=== PATIENT | male | born 1945 | race Caucasian/White ===

== ENCOUNTER → 2020-01-25 13:36 | Outpatient (CLI) | payer MEDICARE, OTHER, SELFPAY ==
--- NOTE | 2020-01-25 | DI.ECHO.S_ITS ---
[facility] +---------+ : : [address] : [place] : : : : [id number] : : : : Phone: [phone]---------+ Echocardiogram Report + + :Name: AVELINO SCHMITT Study Date: 01/25/2020 Height: 70 in : :[facility] Weight: 195 lb : : Gender: Male BSA: 2.1 m2 : :: 1945 Age: 74 yrs BP: 150/74 mmHg: :Reason For Study: ATRIAL FIBRILLATION : :Ordering Physician: JUANIS, : :MARCELO Performed By: Belkis Torres : :Referring: MARCELO BENNETT : + + Interpretation Summary 1) Normal left ventricular size, wall motion, and systolic function (EF 60- 65%). 2) The right ventricle is mildly dilated. Right ventricular systolic function is mildly reduced. 3) Moderate biatrial enlargement. 4) There is mild to moderate tricuspid regurgitation. 5) The right ventricular systolic pressure is estimated to be at least 58 mmHg based on an estimated right atrial pressure of 8 mm Hg. 6) Hypertension present during the study (BP 150/74mmHg). 7) No prior Echo available for comparison. Procedure: A two-dimensional transthoracic echocardiogram with color flow and Doppler was performed. The study quality was technically adequate. There is no prior echocardiogram noted for this patient. The patient was in atrial fibrillation with heart rates between 45-56 bpm during the exam. Left Ventricle: Proximal septal thickening is noted. The left ventricle is normal in size. The ejection fraction is estimated to be 60-65%. Left ventricular systolic function appears normal without focal wall motion abnormalities. Diastolic function could not be accurately assessed due to atrial fibrillation. Right Ventricle: The right ventricle is mildly dilated. Right ventricular systolic function is mildly reduced. Atria: The left atrium is moderately dilated. The right atrium is moderately dilated. There is no Doppler evidence for an interatrial shunt. Mitral Valve: The mitral valve is normal in structure and function. There is mild mitral regurgitation. Aortic Valve: The aortic valve is trileaflet. The aortic valve opens well. There is no aortic valve stenosis. There is mild aortic regurgitation. Tricuspid Valve: The tricuspid valve leaflets are thin and pliable. The right ventricular systolic pressure is estimated to be at least 58 mmHg based on an estimated right atrial pressure of 8 mm Hg. There is mild to moderate tricuspid regurgitation. Pulmonic Valve: The pulmonic valve leaflets are thin and pliable; valve motion is normal. There is mild pulmonic regurgitation. Great Vessels: The aortic root is normal size. The ascending aorta is at the upper limits of normal in size. The IVC is dilated (diameter is greater than 2.1 cm) yet it collapses greater than 50% with a sniff. This suggests a right atrial pressure of 8 mm Hg. Pericardium/ Pleura There is no pericardial effusion. There is no pleural effusion. MMode/2D Measurements & Calculations LVIDd: 5.0 cm LVOT diam: 2.0 cm LVIDs: 3.2 cm Ao root diam: 3.3 cm FS: 36.7 % asc Aorta Diam: 3.7 cm EPSS: 0.23 cm IVSd: 0.87 cm LVPWd: 0.99 cm LV gloria. diameter/BSA (cm/m^2): 2.4 LV sys. diameter/BSA (cm/m^2): 1.5 LA A2 area: 23.2 cm2 RA long axis: 6.4 cm LA A4 area: 25.0 cm2 RA area: 24.9 cm2 LA length (vol): 6.3 cm RA vol: 81.7 ml LA vol: 77.4 ml RA : 39.5 ml/m2 LA vol index: 37.5 ml/m2 IVC diam: 2.4 cm RVD1 (basal): 4.2 cm TAPSE: 2.2 cm Doppler Measurements & Calculations Ao V2 max: 177.3 cm/sec LVOT Max Jorge: 154.2 cm/sec Ao V2 mean: 114.3 cm/sec LV V1 max P.5 mmHg Ao max P.6 mmHg LV V1 VTI: 36.0 cm Ao mean P.0 mmHg TIFFANY(I,D): 3.0 cm2 Ao V2 VTI: 38.3 cm TIFFANY(V,D): 2.8 cm2 sev ratio: 0.94 TIFFANY indexed to BSA (cm^2/m^2): 1.5 MV E max jorge: 118.0 cm/sec TR max jorge: 355.9 cm/sec MV A max jorge: 1.3 cm/sec TR max P.7 mmHg MV E/A: 93.8 PA V2 max: 102.9 cm/sec Med Peak E' Jorge: 9.6 cm/sec PA V2 mean: 67.8 cm/sec E/E' med: 12.3 PA mean P.1 mmHg Lat Peak E' Jorge: 12.6 cm/sec PA pr(Accel): 27.6 mmHg E/E' lat: 9.4 E/e' average: 10.9 MV dec time: 0.27 sec SV(JONNIEOT): 114.6 ml Reading Physician:04:28 PM
== END ==
PROVIDERS: PCP Family Medicine; Referring Provider Family Medicine; Visit Provider Internal Medicine Cardiovascular Disease
DX: I08.3 Combined rheumatic disorders of mitral, aortic and tricuspid valves (principal); I48.0 Paroxysmal atrial fibrillation
CPT/HCPCS: 93306